=== PATIENT | male | born 2000 | race Hispanic/Latino ===

== ENCOUNTER 2019-10-11 02:39 | Emergency (ER) | payer OTHER ==
[~2019-10-11] VITALS: Ht 172.7 cm; Wt 76.5 kg
[2019-10-11] MEDS ORDERED: NS 1,000 ML IV ONE (03:15)
[2019-10-11] MEDS ORDERED: ONDANSETRON 4MG/2ML VIAL (J2405) IV ONE (03:15)
--- NOTE | 2019-10-11 03:26 | REPVR ---
PROCEDURE INFORMATION: Exam: CT Abdomen And Pelvis Without Contrast Exam date and time: 10/11/2019 3:03 AM Age: 19 years old Clinical indication: Abdominal pain; Generalized; Additional info: Vomiting, generalized pain TECHNIQUE: Imaging protocol: Computed tomography of the abdomen and pelvis without contrast. Radiation optimization: All CT scans at this facility use at least one of these dose optimization techniques: automated exposure control; mA and/or kV adjustment per patient size (includes targeted exams where dose is matched to clinical indication); or iterative reconstruction. COMPARISON: No relevant prior studies available. FINDINGS: Liver: Normal. No mass. Gallbladder and bile ducts: Normal. No calcified stones. No ductal dilation. Pancreas: Normal. No ductal dilation. Spleen: Normal. No splenomegaly. Adrenals: Normal. No mass. Kidneys and ureters: Normal. No hydronephrosis. Stomach and bowel: Mild intraluminal fluid in the small bowel. No wall thickening or other inflammatory changes. No bowel obstruction. The stomach and colon are unremarkable. Appendix: No evidence of appendicitis. Intraperitoneal space: Unremarkable. No free air. No significant fluid collection. Vasculature: Unremarkable. No abdominal aortic aneurysm. Lymph nodes: Unremarkable. No enlarged lymph nodes. Bladder: Unremarkable as visualized. Reproductive: Unremarkable as visualized. Bones/joints: Unremarkable. No acute fracture. Soft tissues: Unremarkable. IMPRESSION: 1. Mild intraluminal fluid in the small bowel is nonspecific but may indicate a viral enteritis. No obstruction. 2. Otherwise unremarkable exam. Electronically signed by: Chavo Silverio On 10/11/2019 03:26:02 AM
[2019-10-11 03:38] LABS: BASO # 0.1 10^3/uL (0.0-0.2); BASO % 0.7 % (0.0-1.0); EOS # 0.2 10^3/uL (0.0-0.5); EOS % 2.2 % (0.0-3.0); HEMATOCRIT 43.6 % (42.0-52.0); HEMOGLOBIN 14.4 g/dl (13.5-17.5); LYMPH # 1.7 10^3/uL (1.5-5.0); LYMPH % 19.2 % (24.0-44.0); MEAN CORPUSCULAR HEMOGLOBIN 27.8 pg (27.0-33.0); MEAN CORPUSCULAR VOLUME 84.2 fl (80.0-96.0); MONO # 0.8 10^3/uL (0.0-0.8); MONO % 9.4 % (0.0-5.0); NEUTROPHILS % 68.2 % (36.0-66.0); PLATELET COUNT, AUTOMATED 247 10^3/uL (150-450); RED BLOOD COUNT 5.18 10^6/uL (4.30-6.10); WHITE BLOOD COUNT 8.7 10^3/uL (4.0-10.0)
[2019-10-11 04:02] LABS: ALBUMIN 3.9 GM/DL (3.2-5.2); ALT/SGPT 70 U/L (12-78); BILIRUBIN,DIRECT < 0.1 MG/DL (0.0-0.2); BILIRUBIN,TOTAL 0.3 MG/DL (0.2-1.0); BLOOD UREA NITROGEN 15 MG/DL (7-18); CALCIUM LEVEL 8.6 MG/DL (8.5-10.1); CARBON DIOXIDE LEVEL 30 MEQ/L (21-32); CHLORIDE LEVEL 105 MEQ/L (98-107); GLOMERULAR FILTRATION RATE > 60.0 (>60); GLUCOSE, FASTING 87 MG/DL (70-100); LIPASE 147 U/L (73-393); POTASSIUM SERUM 4.1 MEQ/L (3.5-5.1); SODIUM LEVEL 140 MEQ/L (136-145); TOTAL PROTEIN 7.1 GM/DL (6.4-8.2)
[2019-10-11] MEDS ORDERED: ZOFR4TAB16 PO (04:10)
[2019-10-11 04:29] VITALS: BP 133/60
== END 2019-10-11 04:40 | disposition home or self-care (01) ==
LOC: M ED 02:39
DX: K52.9 Noninfective gastroenteritis and colitis, unspecified (principal)
CPT/HCPCS: 74176; 80048; 80076; 83690; 85025; 96374; 99284; J2405